=== PATIENT | female | born 1985 | race African-American/Black ===

== ENCOUNTER 2020-11-08 13:13 | Emergency (ER) | payer MEDICAID ==
[~2020-11-08] VITALS: Ht 175.3 cm; Wt 97.0 kg
[2020-11-08 14:33] LABS: CLARITY URINE CLEAR (CLEAR); COLOR URINE YELLOW (YELLOW); KETONES URINE 2+ (NEGATIVE); LEUKOCYTE ESTERASE URINE NEGATIVE (NEGATIVE); NITRITE URINE NEGATIVE (NEGATIVE); OCCULT BLOOD URINE 3+ (NEGATIVE); PH URINE 5.5 (4.5-8.0); PROTEIN URINE 1+ (NEGATIVE)
[2020-11-08 14:35] LABS: BASOPHILS % 0.8 % (0.0-2.0); EOSINOPHILS % 2.3 % (0.0-5.0); HEMATOCRIT. 33.9 % (36.0-48.0); HEMOGLOBIN. 10.7 g/dL (12.0-16.0); MEAN CORPUSCULAR HEMOGLOBIN 20.8 pg (28.0-32.0); MEAN CORPUSCULAR VOLUME 65.6 fL (81.0-99.0); MEAN PLATELET VOLUME 8.6 fl (7.4-10.4); MONOCYTES % 9.8 % (2.0-8.0); NEUTROPHILS % 64.1 % (40.0-76.0); PLATELET 301 x1000/uL (130-400); RED BLOOD CELL COUNT 5.17 mill/uL (4.2-5.4); RED CELL DISTRIBUTION WIDTH 18.5 % (11.6-14.6)
[2020-11-08 14:39] LABS: CHLORIDE 105 mEq/L (98-107)
[2020-11-08 15:00] LABS: PLATELET ESTIMATE NORMAL
[2020-11-08 15:05] LABS: B-HCG QUANTITATIVE 73080 mIU/mL (<3)
[2020-11-08] MEDS ORDERED: ONDANSETRON 4MG ODT PO ONE (15:45)
[2020-11-08] MEDS ORDERED: ONDA4TAB5 MT (15:48)
[2020-11-08 16:00] VITALS: BP 104/42
== END 2020-11-08 16:01 | disposition home or self-care (01) ==
LOC: ER 13:13
DX: O21.0 Mild hyperemesis gravidarum (principal); O26.891 Other specified pregnancy related conditions, first trimester; R10.815 Periumbilic abdominal tenderness; Z3A.01 Less than 8 weeks gestation of pregnancy; Z96.652 Presence of left artificial knee joint; Z79.899 Other long term (current) drug therapy
CPT/HCPCS: 36415; 76801; 76817; 80053; 81003; 81025; 84702; 85025; 86850; 86900; 86901; 99284; Q0162

== ENCOUNTER 2025-06-17 05:17 | Inpatient (IN) | payer MEDICAID ==
[~2025-06-17] VITALS: Ht 172.7 cm; Wt 114.8 kg
[~2025-06-17 05:17] MED LIST: ONDA4TAB5 MT
[2025-06-17 05:18] VITALS: O2SAT 99
[2025-06-17] MEDS: ONDANSETRON HCL 4MG/2ML INJ IV ONE (06:08)
[2025-06-17] MEDS: SODIUM CHLORIDE 0.9% 1,000 ML IV ONE (06:08)
[2025-06-17 06:17] LABS: BASOPHILS % 0.4 % (0.0-2.0); EOSINOPHILS % 0.0 % (0.0-5.0); HEMATOCRIT. 37.3 % (36.0-48.0); HEMOGLOBIN. 11.8 g/dL (12.0-16.0); LYMPHOCYTES % 8.3 % (20.0-50.0); MEAN PLATELET VOLUME 8.9 fl (7.4-10.4); MONOCYTES % 1.6 % (2.0-8.0); NEUTROPHILS % 89.7 % (40.0-76.0); PLATELET 298 x1000/uL (130-400); RED BLOOD CELL COUNT 5.31 mill/uL (4.2-5.4); RED CELL DISTRIBUTION WIDTH 16.1 % (11.6-14.6)
[2025-06-17 06:30] LABS: CREATININE 0.8 mg/dL (0.6-1.0); UREA NITROGEN BLOOD 7 mg/dL (9-23)
[2025-06-17 06:32] LABS: ASPARTATE AMINOTRANSFERASE 21 IU/L (<34); BILIRUBIN DIRECT 0.1 mg/dL (<=3.0)
[2025-06-17 06:33] LABS: BILIRUBIN TOTAL 0.5 mg/dL (0.1-1.0); PROTEIN TOTAL 7.6 g/dL (6.0-8.3)
[2025-06-17 06:42] LABS: HCG SCREEN NEGATIVE
[2025-06-17 09:00] VITALS: BP 133/85; PULSE 60; RESP 17; TEMP 36.8628
[2025-06-17] MEDS ORDERED: ACETAMINOPHEN 325MG TABLET PO PRN (10:15)
[2025-06-17] MEDS ORDERED: DOCUSATE SODIUM 100MG CAPSULE PO PRN (10:15)
[2025-06-17] MEDS ORDERED: IPRATROPIUM/ALBUTEROL 0.5-3(2.5)MG/3ML NEB HHN PRN (10:15)
[2025-06-17] MEDS ORDERED: CLONIDINE 0.1MG TABLET PO PRN (10:15)
[2025-06-17 12:00] VITALS: BP 125/60; PULSE 65; RESP 19; TEMP 36.6; O2SAT 97
[2025-06-17] MEDS: POTASSIUM CHLORIDE 20MEQ TABLET SR PO SCH (12:18)
[2025-06-17] MEDS: ENOXAPARIN 30MG/0.3ML SYR SUBCUT SCH (12:18)
[2025-06-17] MEDS: PANTOPRAZOLE SODIUM 40 MG/VIAL IV SCH (12:18)
[2025-06-17] MEDS: SODIUM CHLORIDE 0.9% 1,000 ML IV SCH (12:19)
[2025-06-17] MEDS ORDERED: LIDOCAINE HCL 1% 10 MG/ML 10ML VIAL ONE (12:42)
[2025-06-17] MEDS: KCL 20MEQ/100ML PREMIX 100 ML IV ONE (14:28)
[2025-06-17 15:41] LABS: GLUCOSE URINE NEGATIVE (NEGATIVE); KETONES URINE 1+ (NEGATIVE); LEUKOCYTE ESTERASE URINE NEGATIVE (NEGATIVE); NITRITE URINE NEGATIVE (NEGATIVE); OCCULT BLOOD URINE NEGATIVE (NEGATIVE); PH URINE 6.5 (4.5-8.0); PROTEIN URINE TRACE (NEGATIVE); SPECIFIC GRAVITY URINE 1.028 (1.005-1.030); UROBILINOGEN URINE 0.2 E.U./dL (0.2-1.0)
[2025-06-17 15:51] LABS: *AMPHETAMINES SCREEN URINE NEGATIVE (NEGATIVE); *BARBITURATES SCREEN URINE NEGATIVE (NEGATIVE); *BENZODIAZEPINES SCREEN URINE NEGATIVE (NEGATIVE); *COCAINE SCREEN URINE NEGATIVE (NEGATIVE); CANNABINOID URINE SCREEN PRESUMPTIVE POSITIVE (NEGATIVE); ECSTASY MDMA SCREEN URINE NEGATIVE (NEGATIVE); METHADONE URINE SCREEN NEGATIVE (NEGATIVE); OPIATES URINE SCREEN NEGATIVE (NEGATIVE); PHENCYCLIDINE URINE SCREEN NEGATIVE (NEGATIVE)
[2025-06-17 16:00] VITALS: BP 126/59; PULSE 65; RESP 19; TEMP 36.7; O2SAT 100
[2025-06-17] MEDS: ONDANSETRON HCL 4MG/2ML INJ IV PRN (16:55)
[2025-06-17 17:24] LABS: CLARITY URINE SL HAZY (CLEAR); COLOR URINE STRAW (YELLOW)
[2025-06-17 17:25] LABS: RBC URINE NONE SEEN /hpf (0-2); SQUAMOUS EPITHELIAL CELL URINE 1+ /lpf (RARE/1+); WBC URINE 0-2 /hpf (0-2)
[2025-06-17 17:26] LABS: BACTERIA URINE TRACE; MUCUS URINE TRACE /lpf (< = 2+)
[2025-06-17 20:00] VITALS: BP 139/78; PULSE 71; RESP 18; TEMP 36.4; O2SAT 100
[2025-06-17] MEDS: ACETAMINOPHEN 325MG TABLET PO PRN (21:44)
[2025-06-18] VITALS: BP 125/62; PULSE 64; RESP 18; TEMP 36.2; O2SAT 100
[2025-06-18 07:37] LABS: CREATININE 0.7 mg/dL (0.6-1.0); UREA NITROGEN BLOOD < 5 mg/dL (9-23)
[2025-06-18 08:00] VITALS: BP 134/77; PULSE 60; RESP 20; TEMP 35.7; TEMP 36.8; O2SAT 95
[2025-06-18 08:02] LABS: BASOPHILS % 0.2 % (0.0-2.0); EOSINOPHILS % 0.1 % (0.0-5.0); HEMATOCRIT. 34.3 % (36.0-48.0); HEMOGLOBIN. 10.8 g/dL (12.0-16.0); LYMPHOCYTES % 9.9 % (20.0-50.0); MEAN PLATELET VOLUME 9.7 fl (7.4-10.4); MONOCYTES % 6.2 % (2.0-8.0); NEUTROPHILS % 83.6 % (40.0-76.0); PLATELET 255 x1000/uL (130-400); RED BLOOD CELL COUNT 4.87 mill/uL (4.2-5.4); RED CELL DISTRIBUTION WIDTH 16.1 % (11.6-14.6)
== END 2025-06-18 11:18 | disposition left against medical advice (07) | DRG 241 ==
LOC: ER 05:17 → 8EST 07:56 → EDBEDREQTM 07:58 → EDBEDREQ 07:58 → ENRESERV 08:22
PROVIDERS: ADMIT Family Medicine Adult Medicine; ATTEND Family Medicine Adult Medicine
DX: K29.70 Gastritis, unspecified, without bleeding (principal); E87.6 Hypokalemia; Z53.29 Procedure and treatment not carried out because of patient's decision for other reasons
CPT/HCPCS: 36415; 80048; 80076; 80305; 81003; 84703; 85025; 93005; 96361; 96374; 99285; A4606; J1650; J2003; J2405; J2470; J3480; J7030